=== PATIENT | male | born 2000 | race Caucasian/White ===

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

== ENCOUNTER 2021-09-16 16:25 | Emergency (ER) | payer OTHER, MEDICAID ==
[2021-09-16] MEDS: Lidocaine 1% 5 ML VIAL INJECT ONE (18:05)
[2021-09-16] MEDS: Diphtheria,Pertussis(Acell),Tetanus Vaccine 0.5 ML Syringe IM ONE (18:19)
[2021-09-16] MEDS: Bacitracin Oint 1 GM U/D Packet TOP ONE (18:23)
== END 2021-09-16 18:30 | disposition home or self-care (01) ==
LOC: JP.ED 16:25
DX: S61.411A Laceration without foreign body of right hand, initial encounter (principal); F17.210 Nicotine dependence, cigarettes, uncomplicated; Z23 Encounter for immunization; W26.8XXA Contact with other sharp object(s), not elsewhere classified, initial encounter; Y99.0 Civilian activity done for income or pay
CPT/HCPCS: 12001; 90471; 90715; 99282-25

== ENCOUNTER 2023-02-19 17:32 | Emergency (ER) | payer MEDICAID, OTHER ==
[2023-02-19] MEDS ORDERED: Lidocaine 1% with EPINEPHrine 1:100,000 50 ML MDV INJECT ONE (18:00)
== END 2023-02-19 18:40 | disposition home or self-care (01) ==
LOC: JP.ED 17:32
DX: S61.211A Laceration without foreign body of left index finger without damage to nail, initial encounter (principal); F17.210 Nicotine dependence, cigarettes, uncomplicated; W26.0XXA Contact with knife, initial encounter
CPT/HCPCS: 12002; 99282